=== PATIENT | male | born 1990 | race Caucasian/White ===

== ENCOUNTER 2018-01-18 11:06 | Emergency (ER) | payer BC ==
[2018-01-18] MEDS: ACETAMINOPHEN 325 MG TAB PO (11:41)
[2018-01-18 12:03] LABS: ADD UMIC NO; UR ASCORBIC ACID NEGATIVE (NEGATIVE); UR BILIRUBIN (Dip) NEGATIVE (NEGATIVE); UR BLOOD (Dip) NEGATIVE (NEGATIVE); UR CLARITY CLEAR (CLEAR); UR COLOR YELLOW (YELLOW); UR GLUCOSE (Dip) NEGATIVE (NEGATIVE); UR KETONES (Dip) NEGATIVE (NEGATIVE); UR LEUKOCYTE ESTERASE (Dip) NEGATIVE Leu/ul (NEGATIVE); UR NITRITE (Dip) NEGATIVE (NEGATIVE); UR SPECIFIC GRAVITY (Dip) 1.017 (1.003-1.030); UR TOTAL PROTEIN (Dip) NEGATIVE (NEGATIVE); UR UROBILINOGEN (Dip) NEGATIVE (NEGATIVE)
== END 2018-01-18 12:59 | disposition home or self-care (01) ==
LOC: FTE 11:06
DX: R51 Headache (principal)
CPT/HCPCS: 70450; 81003; 82962; 99284-25

== ENCOUNTER 2018-01-29 23:23 | Emergency (ER) | payer BC ==
[2018-01-30] MEDS: SOD CHLORIDE 0.9% 1,000 ML IV (00:18)
[2018-01-30] MEDS: DIPHENHYDRAMINE 50 MG INJ IV (00:22)
[2018-01-30] MEDS: METOCLOPRAMIDE 10 MG INJ IV (00:22)
== END 2018-01-30 01:44 | disposition home or self-care (01) ==
LOC: FTE 23:23
DX: R51 Headache (principal)
CPT/HCPCS: 96374; 96375; 99284-25

== ENCOUNTER 2018-10-26 23:06 | Emergency (ER) | payer BC ==
[2018-10-27] MEDS: SUMATRIPTAN 6 MG/0.5 ML INJ SC ×4 (02:22→02:25)
[2018-10-27] MEDS: DIPHENHYDRAMINE 50 MG INJ IV (02:22)
[2018-10-27] MEDS: METOCLOPRAMIDE 10 MG INJ IV (02:22)
[2018-10-27] MEDS: SOD CHLORIDE 0.9% 1,000 ML IV (02:23)
== END 2018-10-27 03:01 | disposition home or self-care (01) ==
LOC: FTE 23:06
DX: G43.909 Migraine, unspecified, not intractable, without status migrainosus (principal); J32.9 Chronic sinusitis, unspecified
CPT/HCPCS: 96372; 96374; 96375; 99284-25

== ENCOUNTER 2018-11-02 20:21 | Emergency (ER) | payer BC | END 2018-11-02 21:55 | disposition home or self-care (01) | LOC: FTE 21:55 | DX: G43.909 Migraine, unspecified, not intractable, without status migrainosus (principal) | CPT/HCPCS: 99282 ==